=== PATIENT | female | born 1980 ===

== ENCOUNTER → 2024-10-11 | Outpatient (CLI) | payer BC ==
[2024-10-17 12:46] LABS: HPV HIGH RISK BY TMA Not Detected; HPV SOURCE Vaginal
== END | disposition home or self-care (01) ==
LOC: LAB 11:33 → LAB SHORT 11:33
PROVIDERS: Obstetrics & Gynecology
DX: Z01.419 Encounter for gynecological examination (general) (routine) without abnormal findings (principal)
CPT/HCPCS: 87624; G0123

== ENCOUNTER 2024-11-06 11:33 | Day surgery (SDC) | payer BC ==
[~2024-11-06] VITALS: Ht 162.6 cm; Wt 68.6 kg
[~2024-11-06 11:33] MED LIST: ALBU90OI INH; BUSP5 PO; FLUOXETINE HCL10 M1 PO; HYDHCL25 PO; Lactated Ringer's 1,000 ML IV ONE; propofoL 50 ML IV ONE
[2024-11-06] MEDS ORDERED: MELOXICAM5 MG (11:47)
[2024-11-06] MEDS ORDERED: XYZAL5 MG (11:47)
[2024-11-06] MEDS ORDERED: Flonase 0.05% N16 GM (11:47)
[2024-11-06] MEDS ORDERED: Lactated Ringer's 1,000 ML IV ONE (12:45)
== END 2024-11-06 13:47 | disposition home or self-care (01) ==
LOC: ORSCSDS 11:33
PROVIDERS: Surgery
PROC: 0DJD8ZZ Inspection of Lower Intestinal Tract, Via Natural or Artificial Opening Endoscopic (ICD-10-PCS; principal; 2024-11-06 13:00)
DX: Z12.11 Encounter for screening for malignant neoplasm of colon (principal); F41.9 Anxiety disorder, unspecified; F32.A Depression, unspecified; J45.909 Unspecified asthma, uncomplicated; K57.30 Diverticulosis of large intestine without perforation or abscess without bleeding; Z79.899 Other long term (current) drug therapy
CPT/HCPCS: J2704; J7120

== ENCOUNTER 2025-07-16 10:37 | Emergency (ER) | payer OTHER ==
[~2025-07-16] VITALS: Ht 162.6 cm; Wt 69.8 kg
[~2025-07-16 10:37] MED LIST changes: +Flonase 0.05% N16 GM; -Lactated Ringer's 1,000 ML IV ONE; +MELOXICAM5 MG; +XYZAL5 MG; -propofoL 50 ML IV ONE
[2025-07-16] MEDS ORDERED: CYCL10 PO (11:30)
== END 2025-07-16 15:12 | disposition home or self-care (01) ==
LOC: ER 10:37
DX: M25.561 Pain in right knee (principal); W01.0XXA Fall on same level from slipping, tripping and stumbling without subsequent striking against object, initial encounter; J45.909 Unspecified asthma, uncomplicated; Z88.8 Allergy status to other drugs, medicaments and biological substances; Z79.899 Other long term (current) drug therapy
CPT/HCPCS: 73562-RT; 99284-25